=== PATIENT | male | born 1985 | race Caucasian/White ===

== ENCOUNTER 2018-12-18 04:47 | Emergency (ER) | payer MEDICAID, OTHER ==
[~2018-12-18] VITALS: Wt 55.0 kg
[2018-12-18] MEDS ORDERED: SOD CHLORIDE 0.9% 1,000 ML IV STA (06:15)
[2018-12-18] MEDS ORDERED: KETOROLAC 30 MG INJ IV STA (06:15)
[2018-12-18] MEDS ORDERED: ONDANSETRON 4 MG INJ IV STA (06:15)
[2018-12-18] MEDS ORDERED: CEPH-443 PO (07:19)
[2018-12-18] MEDS ORDERED: TAMS-14 PO (07:19)
[2018-12-18] MEDS ORDERED: HYDR-4011 PO (07:19)
[2018-12-18 07:39] VITALS: BP 110/61; PULSE 65; RESP 17
--- NOTE | 2018-12-18 09:03 | ERD ---
ER Documentation Chief Complaint Chief Complaint RUQ PAIN X'S 2 HOURS HPI 33-year-old male presenting with flank pain and epigastric pain times 2 hours. Patient states that he had some vomiting. He states he had a similar pain 4 ye ars ago and was diagnosed with kidney stones. He states the pain is similar. Denies any fevers. Has not use any medications for symptoms. Denies medical problems. NKDA. Surgical history denies. Social history smokes 10 cigarettes a day. ROS All systems reviewed and are negative except as per history of present illness. Medications Home Meds Active Scripts Cephalexin* (Keflex*) 500 Mg Capsule, 500 MG PO QID for 7 Days, CAP Prov:VALDEMAR RIVAS PA-C 12/18/18 Hydrocodone/Acetaminophen ([place] 5-325 Tablet) 1 Each Tablet, 1 TAB PO Q6H PRN for PAIN, #7 TAB Prov:VALDEMAR RIVAS PA-C 12/18/18 Tamsulosin Hcl* (Flomax*) 0.4 Mg Cap.er.24h, 0.4 MG PO QPM, #30 CAP Prov:VALDEMAR RIVAS PA-C 12/18/18 Allergies Allergies: Coded Allergies: No Known Allergy (Unverified , 12/18/18) PMhx/Soc Medical and Surgical Hx: pt denies Medical Hx, pt denies Surgical Hx Hx Alcohol Use: No Hx Substance Use: No Hx Tobacco Use: No Smoking Status: Never smoker FmHx Family History: No diabetes, No coronary disease, No other Physical Exam Vitals Vital Signs Date Temp Pulse Resp B/P (MAP) Pulse Ox O2 O2 Flow FiO2 Time Delivery Rate 12/18/18 98.5 65 17 110/61 98 Room Air 07:39 (77) 12/18/18 97.6 57 22 159/91 100 04:49 (113) Physical Exam GENERAL: The patient is well-appearing, well-nourished, in no acute distress HEENT: Atraumatic. Conjunctivae are pink. Pupils equal, round, and reactive to light. There is no scleral icterus. Tympanic membranes clear bilaterally. Oropharynx clear. No nystagmus or photophobia. CHEST: Clear to auscultation bilaterally. There are no rales, wheezes or rhonchi. HEART: Regular rate and rhythm. No murmurs, clicks, rubs or gallops. ABDOMEN: Active bowel sounds. No distention. Mild tenderness palpation in the epigastric region extending to the back. BACK: No midline or flank tenderness. Result Diagram: 12/18/18 0623 12/18/18 0623 Results 24 hrs Laboratory Tests Test 12/18/18 06:23 White Blood Count 15.6 10^3/ul Red Blood Count 4.36 10^6/ul Hemoglobin 13.5 g/dl Hematocrit 39.6 % Mean Corpuscular Volume 90.8 fl Mean Corpuscular Hemoglobin 31.0 pg Mean Corpuscular Hemoglobin Concent 34.1 g/dl Red Cell Distribution Width 12.9 % Platelet Count 255 10^3/UL Mean Platelet Volume 9.5 fl Immature Granulocytes % 0.500 % Neutrophils % 81.0 % Lymphocytes % 10.5 % Monocytes % 7.1 % Eosinophils % 0.6 % Basophils % 0.3 % Nucleated Red Blood Cells % 0.0 /100WBC Immature Granulocytes # 0.070 10^3/ul Neutrophils # 12.6 10^3/ul Lymphocytes # 1.6 10^3/ul Monocytes # 1.1 10^3/ul Eosinophils # 0.1 10^3/ul Basophils # 0.1 10^3/ul Nucleated Red Blood Cells # 0.0 10^3/ul Urine Color YELLOW Urine Clarity SLIGHTLY CLOUDY Urine pH 5.0 Urine Specific [place] 1.017 Urine Ketones NEGATIVE mg/dL Urine Nitrite NEGATIVE mg/dL Urine Bilirubin NEGATIVE mg/dL Urine Urobilinogen NEGATIVE mg/dL Urine Leukocyte Esterase NEGATIVE Nicola/ul Urine Microscopic RBC > 182 /HPF Urine Microscopic WBC 9 /HPF Urine Bacteria FEW /HPF Urine Mucus MANY /HPF Urine Hemoglobin 3+ mg/dL Urine Glucose NEGATIVE mg/dL Urine Total Protein 1+ mg/dl Sodium Level 143 mmol/L Potassium Level 3.9 mmol/L Chloride Level 104 mmol/L Carbon Dioxide Level 32 mmol/L Anion Gap 7 Blood Urea Nitrogen 12 mg/dl Creatinine 0.65 mg/dl Est Glomerular Filtrat Rate mL/min > 60 mL/min Glucose Level 99 mg/dl Calcium Level 9.9 mg/dl Total Bilirubin 0.1 mg/dl Direct Bilirubin 0.00 mg/dl Indirect Bilirubin 0.1 mg/dl Aspartate Amino Transf (AST/SGOT) 21 IU/L Alanine Aminotransferase (ALT/SGPT) 24 IU/L Alkaline Phosphatase 72 IU/L Total Protein 7.5 g/dl Albumin 4.6 g/dl Globulin 2.90 g/dl Albumin/Globulin Ratio 1.58 Lipase 60 U/L Current Medications Medications Dose Sig/Jyoti Start Time Status Last (Trade) Ordered Route PRN Stop Time Admin Dose Reason Admin Sodium 1,000 ml @ Q1H STAT 12/18/18 DC 12/18/18 Chloride 1,000 mls/hr IV 06:15 06:30 12/18/18 07:14 Ondansetron 4 mg ONCE STAT 12/18/18 DC 12/18/18 HCl (Zofran IV 06:15 06:31 Inj) 12/18/18 06:16 Ketorolac 30 mg ONCE STAT 12/18/18 DC 12/18/18 Tromethamine IV 06:15 06:31 (Toradol) 12/18/18 06:16 Procedures/MDM DIAGNOSTIC IMAGING REPORT Patient: DIANE ELLIS : 1985 Age: 33 Sex: M MR #: [id number] DOS: 12/18/18614 Ordering MD: ZAIN RIVAS PA-C Location: [facility] Room/Bed: PROCEDURE: CT of the abdomen and pelvis without contrast CLINICAL INDICATION: Abdominal pain TECHNIQUE: Spiral CT images through the abdomen and pelvis without the use of contrast. The administered radiation dose is CTDI 4.9 mGy and DLP 276.3 mGy*cm. Coronal and sagittal reformatted images were submitted. One or more of the following dose reduction techniques were used: automated exposure control, adjustment of the mA and/or kV according to patient size, or use of iterative reconstruction technique. DICOM images are available. COMPARISON: None FINDINGS: Lack of oral and intravenous contrast somewhat limits evaluation. The lung bases are clear. No pleural effusion is seen.. The liver, spleen, adrenal glands and pancreas are normal. There is no evidence of cholelithiasis or biliary ductal dilatation. The kidneys are normal in size and contour. 4 mm calculus is seen in the lower pole of the right kidney. There is mild right hydroureteronephrosis. 9 mm linear calculus is identified at the right ureteral vesicle junction. There is no evidence for bowel obstruction, free air, or abscess. The appendix is normal in appearance. the colon is fecal filled. There is colonic diverticulosis without evidence of diverticulitis. The aorta is normal in caliber. No adenopathy or ascites is seen. The bladder is underdistended. The prostate gland is normal. The osseous structures are intact. Bilateral sacroiliac joint space narrowing, erosive changes and sclerosis, greater on the right. IMPRESSION: 9 mm right UVJ calculus and mild hydroureteronephrosis. 4 mm right lower pole renal calculus. Sigmoid diverticulosis without evidence of acute diverticulitis. Bilateral sacro ileitis. ER Course: Urine sent for culture. 1 L normal saline given ED and Toradol given ED. Pain control. MDM: 33-year-old male presenting with findings consistent with kidney stones. I have low suspicion for infectious etiology however there is a few bacteria noted on urinalysis so we will treat with antibiotics. I will suspicion for sepsis. I have low suspicion for other acute abdominal emergency. Patient is discharged with stricter precautions and told to follow-up with primary care within 1-2 days for close evaluation. All questions answered at discharge Departure Diagnosis: Primary Impression: Kidney stone Condition: Stable Patient Instructions: Kidney Stone W/ Colic Referrals: [facility] YOU HAVE RECEIVED A MEDICAL SCREENING EXAM AND THE RESULTS INDICATE THAT YOU DO NOT HAVE A CONDITION THAT REQUIRES URGENT TREATMENT IN THE EMERGENCY DEPARTMENT. FURTHER EVALUATION AND TREATMENT OF YOUR CONDITION CAN WAIT UNTIL YOU ARE SEEN IN YOUR DOCTORS OFFICE WITHIN THE NEXT 1-2 DAYS. IT IS YOUR RESPONSIBILITY TO MAKE AN APPOINTMENT FOR FOLOW-UP CARE. IF YOU HAVE A PRIMARY DOCTOR --you should call your primary doctor and schedule an appointment IF YOU DO NOT HAVE A PRIMARY DOCTOR YOU CAN CALL OUR PHYSICIAN REFERRAL HOTLINE AT IF YOU CAN NOT AFFORD TO SEE A PHYSICIAN YOU CAN CHOSE FROM THE FOLLOWING [facility] [id number] [facility] [address] [facility] [address] [facility] [address] [facility] [address] [facility] [address] Additional Instructions: FOLLOW UP WITH YOUR PRIMARY CARE PHYSICIAN TOMORROW.Return to this facility if you are not improving as expected. VALDEMAR RIVAS PA-C Dec 18, 2018 09:03
== END 2018-12-18 07:46 | disposition home or self-care (01) ==
LOC: FTE 04:47
DX: N20.0 Calculus of kidney (principal)
CPT/HCPCS: 36415; 74176; 80053; 81001; 83690; 85025; 87086; 96361; 96374; 96375; J1885; J2405; J7030; Z7502